=== PATIENT | male | born 1945 | race Caucasian/White ===

== ENCOUNTER 2017-02-15 11:52 | Emergency (ER) | payer OTHER ==
[~2017-02-15] VITALS: Ht 177.8 cm; Wt 77.1 kg
--- NOTE | 2017-02-15 12:10 | NUR ---
Dietary called for lunch tray for pt as requested by Dr Rondon.
[2017-02-15] MEDS: IV NORMAL SALINE 1000 ML BAG IV ONE (12:16)
[2017-02-15] MEDS ORDERED: [UNRECOGNIZED DRUG - REMARK] (12:21)
[2017-02-15] MEDS ORDERED: [UNRECOGNIZED DRUG - REMARK] (12:21)
[2017-02-15] MEDS ORDERED: [UNRECOGNIZED DRUG - REMARK] (12:21)
[2017-02-15] MEDS ORDERED: [UNRECOGNIZED DRUG - REMARK] (12:21)
[2017-02-15 12:28] LABS: BASOPHILS % (AUTO) 0.2 % (0.0-2.0); EOSINOPHILS # (AUTO) 0.2 K/uL (0.0-0.7); EOSINOPHILS % (AUTO) 2.3 % (0.0-7.0); HEMATOCRIT 42.7 % (40-50); LYMPHOCYTES # (AUTO) 1.8 K/UL (0.8-4.8); LYMPHOCYTES % (AUTO) 20.1 % (20.5-51.5); MEAN CORPUSCULAR HEMOGLOBIN 27.9 UUG (27.0-31.0); MEAN CORPUSCULAR HGB CONC 33 g/dL (32.0-37.0); MEAN CORPUSCULAR VOLUME 84.9 FL (82.0-92.0); MONOCYTES # (AUTO) 0.8 K/UL (0.1-1.30); NEUTROPHILS # (AUTO) 6.3 K/UL (1.8-8.9); NEUTROPHILS % (AUTO) 68.4 % (38.5-71.5); PLATELET COUNT (AUTO) 179 K/UL (150-450); RED BLOOD CELL COUNT(AUTO) 5.03 MIL/UL (4.7-6.1); RED CELL DISTRIBUTION WIDTH 12.6 % (11.5-14.5); WHITE BLOOD COUNT (AUTO) 9.1 K/UL (4.0-11.2)
[2017-02-15 12:29] LABS: POTASSIUM 3.6 mmol/L (3.5-5.1)
[2017-02-15 12:35] LABS: ALBUMIN 3.6 g/dL (3.4-5.0); BILIRUBIN,DIRECT 0.1 mg/dL (0.0-0.2); BILIRUBIN,TOTAL 0.3 mg/dL (0.2-1.0); TOTAL PROTEIN, SERUM 7.3 g/dL (6.4-8.2)
--- NOTE | 2017-02-15 13:15 | NUR ---
Pt sitting in gurney and eating lunch, NAD noted.
--- NOTE | 2017-02-15 13:40 | NUR ---
Called pt's Lilia ) per pt request, stated she is unable to pick the pt up from ER because she is not feeling well but she will call their son to see if he can pick the pt up from ER.
--- NOTE | 2017-02-15 14:05 | NUR ---
Received telephone call from Veto who stated he is the pt's son and he will come pick him up.
--- NOTE | 2017-02-15 14:26 | NUR ---
IV removed. Catheter intact and site benign. Pressure and 4x4 gauze applied to site. No bleeding noted. Written and verbal after care instructions given. Patient verbalizes understanding of instructions. Pt is waiting in room 1b for his son.
--- NOTE | 2017-02-15 14:28 | NUR ---
Pt states he will wait for his son in the waiting room, pt ambulated from room 2b to ER waiting room with steady gait.
[2017-02-15 14:29] VITALS: BP 143/71
== END 2017-02-15 14:30 | disposition home or self-care (01) ==
LOC: ER 11:57
DX: E11.649 Type 2 diabetes mellitus with hypoglycemia without coma (principal); Z79.4 Long term (current) use of insulin
CPT/HCPCS: 71010; 83690; 85025; 93005; A4663; J7030